=== PATIENT | female | born 1930 | race Caucasian/White ===

== ENCOUNTER → 2016-11-21 | Outpatient (CLI) | payer MEDICARE, OTHER ==
--- NOTE | ~2016-11-21 | BD1 ---
[facility] A Service of [facility] & [facility] RADIOLOGY TEXT RESULTS PATIENT: CRISTOFER KHAN LOCATION: [facility] : 34 UNIT #: [id number] AGE: [address]: Tish Jaramillo DO SEX: F ORDER DR: [id number] [facility] [address] [place], [place] [address] [id number] O MR#: [id number] Acc #: [id number] NAME: CRISTOFER KHAN : 1930 SEX: F STUDY DATE/TIME: 11/21/2016 9:21 UNIT: [facility] ROOM: STUDY DESCRIPTION: BD Dexa Bone Dens 1+ Site Attending Physician: Tish Jaramillo D.O. Referring Physician: Tish Jaramillo D.O. Ordering Physician: Tish Jaramillo D.O. Primary Care Physician: Tish Jaramillo D.O. MEDICAL IMAGING REPORT This report is preliminary unless electronic signature is present EXAM Bone density scan, 11/21/2016 HISTORY Osteoporosis. Postmenopausal. FINDINGS Bone density scanning performed upper four lumbar vertebral segments and proximal left femur in 86-year-old female postmenopausal. Most recent comparison 11/10/2014. Bone density upper four lumbar vertebral segments overall 0.984 g/cm2 for T-score 0.6 standard deviation below mean for a reference population normal young individuals and a Z-score 2.3 standard deviations above the mean for age-matched population. Compared to prior examination there has been a 4.8% statistically significant increase in bone density in this region. In the proximal left femur the total bone mineral density is 0.873 g/cm2 for a T-score 0.6 standard deviations below mean for a reference population normal young individuals and a Z-score 1.8 standard deviation above mean for age-matched population. In the left femoral neck specifically the bone mineral density 0.653 g/cm2 for a T-score 1.8 standard deviations below mean for a reference population normal young individuals and a Z-score 0.7 standard deviations above the mean for age-matched population. Using total bone mineral density as trending value there has been a 1.9% increase in bone mineral density in this region compared to 11/10/2014. IMPRESSION 1. Osteopenia in the left femoral neck. Patient felt to be at increased risk for fracture. Treatment options may be considered. Continued surveillance recommended. [facility] A Service of [facility] RADIOLOGY TEXT RESULTS PATIENT: CRISTOFER KHAN LOCATION: [facility] : 32 UNIT #: [id number] AGE: [address]: Tish Jraamillo DO SEX: F ORDER DR: 2. Please see trending data in body of report above. Dictated by... Mian Barkley M.D. THIS IS AN ELECTRONICALLY VERIFIED REPORT Mian Barkley M.D. at 11/23/2016 7:36 AM Vonda TD: 11/21/2016 15:18 JOB #: [id number] MEDICAL IMAGING REPORT Page 1 of 1 COPY
--- NOTE | ~2016-11-21 | MY29 ---
[facility] A Service of [facility] & [facility] RADIOLOGY TEXT RESULTS PATIENT: CRISTOFER KHAN LOCATION: [facility] : 32 UNIT #: [id number] AGE: [address]: Tish Jaramillo DO SEX: F ORDER DR: [id number] [facility] [address] [place], [place] [address] [id number] O MR#: [id number] Acc #: [id number] NAME: CRISTOFER KHAN : 1930 SEX: F STUDY DATE/TIME: 11/21/2016 9:22 UNIT: [facility] ROOM: STUDY DESCRIPTION: MY DAHIANA SCREENING W/ CAD BILAT Attending Physician: Tish Jaramillo D.O. Referring Physician: Tish Jaramillo D.O. Ordering Physician: Tish Jaramillo D.O. Primary Care Physician: Tish Jaramillo D.O. MEDICAL IMAGING REPORT This report is preliminary unless electronic signature is present EXAM Digital screening mammogram, 11/21/2016 HISTORY 86-year-old woman no risk elevation. Annual screening. COMPARISON Mammograms date to 09/10/2006 with most recent screening 11/21/2015. FINDINGS Digital imaging of each breast was completed utilizing a two-view examination of each breast in craniocaudal and mediolateral-oblique projections. Review and interpretation of digital mammograms include a second review in conjunction with FDA-approved CAD device. There is a normal parenchymal presentation bilaterally consistent with the patient's age. There are no breast masses imaged and no parenchymal asymmetry is visualized. There are no suspicious microcalcifications and I see no focal architectural disturbance. IMPRESSION Negative screening digital mammogram. One-year followup recommended. Patients over the age of 40 are entered into a reminder system with target due date for the next mammogram. A result letter will also be sent to the patient. BIRADS: 1 Negative Dictated by... Felix Norton M.D. THIS IS AN ELECTRONICALLY VERIFIED REPORT Felix Norton M.D. at 11/21/2016 3:13 PM [facility] A Service of [facility] & [facility] RADIOLOGY TEXT RESULTS PATIENT: CRISTOFER KHAN LOCATION: [facility] : 32 UNIT #: [id number] AGE: [address]: Tish Jaramillo DO SEX: F ORDER DR: Yasmani TD: 11/21/2016 14:26 JOB #: [id number] MEDICAL IMAGING REPORT Page 1 of 1 COPY
== END | disposition home or self-care (01) ==
LOC: CWCC 08:54
DX: Z12.31 Encounter for screening mammogram for malignant neoplasm of breast (principal); M81.0 Age-related osteoporosis without current pathological fracture; M85.88 Other specified disorders of bone density and structure, other site
CPT/HCPCS: 77080; G0202